=== PATIENT | male | born 1990 | race Caucasian/White ===

== ENCOUNTER 2019-04-04 11:54 | Emergency (ER) | payer BC, MEDICAID ==
[~2019-04-04] VITALS: Ht 182.9 cm; Wt 84.0 kg
[2019-04-04 12:01] VITALS: BP 126/85
[2019-04-04 13:00] LABS: RAPID INFLUENZA A Negative (Negative); RAPID INFLUENZA B Negative (Negative)
[2019-04-04] MEDS ORDERED: DEXAMETHASONE 4 MG TABLET PO ONE (14:00)
== END 2019-04-04 14:17 | disposition home or self-care (01) ==
LOC: ED 14:10
DX: B34.9 Viral infection, unspecified (principal); J45.909 Unspecified asthma, uncomplicated
CPT/HCPCS: 71046; 87081; 87400; 87880; 93005; 99284